=== PATIENT | female | born 1990 ===

== ENCOUNTER 2021-04-29 07:57 | Emergency (ER) | payer SELFPAY ==
--- NOTE | 2021-04-29 08:10 | Emergency Department Report ---
ED HPI - General Stated complaint: ABD PAIN Time Seen by Provider: 04/29/21 08:06 - History of Present Illness Initial comments: 31-year-old female that is 3 para 1 with 1 presents to the emergency room for vaginal bleeding with 1 pad saturated. She denies any pelvic pain at this time. She has not had her first ultrasound due on May 03. 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 She denies any fever chills no nausea no vomiting no chest pain or shortness of breath. MD Complaint: vaginal bleeding Onset/Timin -: days(s) Severity scale (0 -10): 0 Consistency: intermittent Improves with: none Worsens with: none Vaginal bleeding: heavy :: Yes Number of weeks : 10 OB History - Current : no complications OB History - Previous Pregnancies: no complications Pre-meagan care: other ([facility] ) - Related Data : 3 Para: 1 Ab: 1 ED Review of Systems ROS: Stated complaint: ABD PAIN Other details as noted in HPI Critical care attestation.: If time is entered above; I have spent that time in minutes in the direct care of this critically ill patient, excluding procedure time. ED Disposition Condition: Stable
[2021-04-29 08:26] LABS: Bilirubin,Urine NEG (Negative); Blood,Urine SM (Negative); Color,Urine Straw (Yellow); Protein,Urine <15 mg/dL mg/dL (Negative); RBC,Urine < 1.0 /HPF (0.0-6.0); Urobilinogen,Urine < 2.0 mg/dL (<2.0); WBC,Urine < 1.0 /HPF (0.0-6.0)
[2021-04-29 09:48] LABS: Blood Urea Nitrogen 14 mg/dL (7-17); Calcium 8.5 mg/dL (8.4-10.2); Hemolysis Index 6
[2021-04-29 09:51] LABS: BUN/Creatinine Ratio 28
[2021-04-29 10:18] LABS: Basophils # (Auto) 0.1 K/mm3 (0.0-0.1); Basophils % (Auto) 0.8 % (0.0-1.8); Eosinophils % (Auto) 0.6 % (0.0-4.3); Hematocrit 37.2 % (30.3-42.9); Hemoglobin 12.7 gm/dl (10.1-14.3); Lymphocytes # (Auto) 2.7 K/mm3 (1.2-5.4); Lymphocytes % (Auto) 35.1 % (13.4-35.0); Mean Corpuscular HGB Conc 34 % (30-34); Mean Corpuscular Volume 92 fl (79-97); Monocytes # (Auto) 0.3 K/mm3 (0.0-0.8); Monocytes % (Auto) 4.2 % (0.0-7.3); Platelet Count 158 K/mm3 (140-440); Red Blood Count 4.06 M/mm3 (3.65-5.03); Red Cell Distribution Width 13.1 % (13.2-15.2)
--- NOTE | 2021-04-29 10:50 | Emergency Department Report ---
ED Abdominal Pain HPI - General Chief Complaint: Abdominal Pain Stated Complaint: ABD PAIN Time Seen by Provider: 04/29/21 08:06 Source: patient Mode of arrival: Ambulatory Limitations: Language Barrier - History of Present Illness Initial Comments: The patient was evaluated in the emergency department for symptoms described in the history of present illness. He/she was evaluated in the context of the global COVID-19 pandemic, which necessitated consideration that the patient might be at risk for infection with the virus that causes COVID-19. Insti tutional protocols and algorithms that pertain to the evaluation of patients at risk for COVID-19 are in a state of rapid change based on information released by regulatory bodies including the CDC and federal and state organizations. These policies and algorithms were followed during the patient's care in the emergency department. Please note that these policies, procedures and recommendations changed on a rapid basis. 31-year-old female complains of right lower quadrant pain intermittent for 2 months. She states that it had improved and now has returned in the last 2 weeks. She denies any nausea no vomiting no diarrhea no urinary symptoms. She has no fever no chills. She states Tylenol has helped with her pain. MD Complaint: abdominal pain Onset/Timin -: week(s) Location: RLQ Radiation: none Severity: mild Quality: aching, sharp Consistency: intermittent Improves With: nothing Worsens With: nothing Associated Symptoms: denies: nausea, vomiting, diarrhea, fever, chills, dysuria - Related Data Allergies Allergy/AdvReac Type Severity Reaction Status Date / Time No Known Allergies Allergy Unverified 04/29/21 08:17 ED Review of Systems ROS: Stated complaint: ABD PAIN Other details as noted in HPI Comment: All other systems reviewed and negative ED Past Medical Hx - Past Medical History Previous Medical History?: Yes Additional medical history: denies - Surgical History Past Surgical History?: No Additional Surgical History: denies ED Physical Exam - General Limitations: Language Barrier General appearance: alert, in no apparent distress - Head Head exam: Present: atraumatic, normocephalic - Eye Eye exam: Present: normal appearance - ENT ENT exam: Present: mucous membranes moist - Neck Neck exam: Present: normal inspection - Respiratory Respiratory exam: Present: normal lung sounds bilaterally. Absent: respiratory distress - Cardiovascular Cardiovascular Exam: Present: regular rate, normal rhythm. Absent: systolic murmur, diastolic murmur, rubs, gallop - GI/Abdominal GI/Abdominal exam: Present: soft, normal bowel sounds. Absent: distended, tenderness, guarding - Extremities Exam Extremities exam: Present: normal inspection - Back Exam Back exam: Present: normal inspection - Neurological Exam Neurological exam: Present: alert, oriented X3 - Psychiatric Psychiatric exam: Present: normal affect, normal mood - Skin Skin exam: Present: warm, dry, intact, normal color. Absent: rash ED Course Vital Signs 04/29/21 08:12 Temperature 99.1 F Pulse Rate 85 Respiratory 18 Rate Blood Pressure 126/88 O2 Sat by Pulse 99 Oximetry ED Medical Decision Making - Lab Data Result diagrams: 04/29/21 08:48 04/29/21 08:48 Laboratory Tests 04/29/21 04/29/21 04/29/21 08:48 08:48 Unknown WBC 7.7 RBC 4.06 Hgb 12.7 Hct 37.2 MCV 92 MCH 31 MCHC 34 RDW 13.1 L Plt Count 158 Lymph % (Auto) 35.[address] [place] % (Auto) 4.2 Eos % (Auto) 0.6 Baso % (Auto) 0.8 Lymph # (Auto) 2.7 [place] # (Auto) 0.3 Eos # (Auto) 0.0 Baso # (Auto) 0.1 Seg Neutrophils % 59.3 Seg Neutrophils # 4.6 Sodium 138 Potassium 4.1 Chloride 105.4 Carbon Dioxide 22 Anion Gap 15 BUN 14 Creatinine 0.5 L Estimated GFR > 60 BUN/Creatinine Ratio 28 Glucose 95 Calcium 8.5 Urine Color Straw Urine Turbidity Clear Urine pH 6.0 Ur Specific [place] 1.015 Urine Protein <15 mg/dl Urine Glucose (UA) Neg Urine Ketones Neg Urine Blood Sm Urine Nitrite Neg Urine Bilirubin Neg Urine Urobilinogen < 2.0 Ur Leukocyte Esterase Neg Urine WBC (Auto) < 1.0 Urine RBC (Auto) < 1.0 U Epithel Cells (Auto) 2.0 - Radiology Data Radiology results: report reviewed [facility] [address] [place] [address] Cat Scan Report Signed Patient: MAIN QUINTERO MR#: [id number] : 1990 Acct:[id number] Age/Sex: 31 / F ADM Date: 04/29/21 Loc: ED Attending Dr: Ordering Physician: NELSY NEWTON Date of Service: 04/29/21 Procedure(s): CT abdomen pelvis w con Accession Number(s): [id number] cc: NELSY NEWTON CT abdomen pelvis w con INDICATION / CLINICAL INFORMATION: RLQ pain and tenderness. OMNI 300 100 ML. TECHNIQUE: Axial CT images were obtained through the abdomen and pelvis after 100 cc Omnipaque [address] scans at this location are performed using CT dose reduction for ALARA by means of automated exposure control. COMPARISON: None available. FINDINGS: LOWER CHEST: No significant abnormality LIVER: No significant abnormality GALLBLADDER/BILIARY TREE: No significant abnormality PANCREAS: No significant abnormality SPLEEN: No significant abnormality ADRENALS: No significant abnormality KIDNEYS / URETER: No significant abnormality URINARY BLADDER: No significant abnormality REPRODUCTIVE ORGANS: Endometrial fluid/thickening is likely physiologic. There is a crenated cystic structure in the right adnexa, measuring 1.7 cm, most compatible with corpus luteum cyst. Trace pelvic free fluid, likely physiologic. STOMACH / BOWEL: No significant abnormality. The appendix is normal in caliber. LYMPH NODES: No significant adenopathy. VASCULATURE: No significant abnormality. OTHER: No free air, free fluid, or focal fluid collection is identified. SKELETAL SYSTEM: No acute osseous findings. IMPRESSION: 1. No acute abnormality of the abdomen or pelvis. Normal appendix. 2. Small right ovarian corpus luteum cyst with trace free fluid, likely physiologic. Signer Name: Ravin Monterroso MD Signed: 04/29/2021 12:45 PM Workstation Name: [id number] Transcribed By: JS Dictated By: RAVIN MONTERROSO MD Electronically Authenticated By: RAVIN MONTERROSO MD Signed Date/Time: 04/29/21 1245 DD/ 1240 TD/TT: - Medical Decision Making 31-year-old female complains of right lower quadrant pain intermittent for 2 months. She states that it had improved and now has returned in the last 2 weeks. She denies any nausea no vomiting no diarrhea no urinary symptoms. She has no fever no chills. She states Tylenol has helped with her pain. CBC CMP urinalysis urine CT scan with contrast abdomen and pelvis. CT abdomen shows a small right ovarian cyst no other abnormalities appreciated normal appendix. Patient can take ibuprofen or Tylenol follow-up with the CLASSIFICATION OFFICER. Critical care attestation.: If time is entered above; I have spent that time in minutes in the direct care of this critically ill patient, excluding procedure time. ED Disposition Clinical Impression: Right lower quadrant abdominal pain, Right ovarian cyst Disposition: 01 HOME / SELF CARE / HOMELESS Is pt being admited?: No Does the pt Need Aspirin: No Condition: Stable Instructions: Abdominal Pain (ED), Ovarian Cyst, [id number] Additional Instructions: CT scan is negative for any acute findings suggest shows a ovarian cyst. Abdomen pelvis is within normal limits there is no concerns for appendicitis. You can take ibuprofen or Aleve for your pain and follow-up with the CLASSIFICATION OFFICER. Referrals: [facility] [Provider Group] - 3-5 Days [facility] [Provider Group] - 3-5 Days [facility] [Provider Group] - 3-5 Days Forms: Work/School Release Form(ED) Time of Disposition: 13:04
[2021-04-29 11:45] LABS: HCG Qualitative,Urine Negative (Negative)
--- NOTE | 2021-04-29 12:49 | Cat Scan Report ---
CT abdomen pelvis w con INDICATION / CLINICAL INFORMATION: RLQ pain and tenderness. OMNI 300 100 ML. TECHNIQUE: Axial CT images were obtained through the abdomen and pelvis after 100 cc Omnipaque [address] scans at this location are performed using CT dose reduction for ALARA by means of automated exposure control. COMPARISON: None available. FINDINGS: LOWER CHEST: No significant abnormality LIVER: No significant abnormality GALLBLADDER/BILIARY TREE: No significant abnormality PANCREAS: No significant abnormality SPLEEN: No significant abnormality ADRENALS: No significant abnormality KIDNEYS / URETER: No significant abnormality URINARY BLADDER: No significant abnormality REPRODUCTIVE ORGANS: Endometrial fluid/thickening is likely physiologic. There is a crenated cystic s tructure in the right adnexa, measuring 1.7 cm, most compatible with corpus luteum cyst. Trace pelvic free fluid, likely physiologic. STOMACH / BOWEL: No significant abnormality. The appendix is normal in caliber. LYMPH NODES: No significant adenopathy. VASCULATURE: No significant abnormality. OTHER: No free air, free fluid, or focal fluid collection is identified. SKELETAL SYSTEM: No acute osseous findings. IMPRESSION: 1. No acute abnormality of the abdomen or pelvis. Normal appendix. 2. Small right ovarian corpus luteum cyst with trace free fluid, likely physiologic. Signer Name: Ashok Pope MD Signed: 04/29/2021 12:45 PM Workstation Name: [id number]
[2021-04-29 13:39] VITALS: BP 124/84
== END 2021-04-29 13:38 | disposition home or self-care (01) ==
LOC: ED 07:57
DX: N83.201 Unspecified ovarian cyst, right side (principal)
CPT/HCPCS: 36415; 74177; 80048; 81001; 81025; 85025; 99284; Q9967